=== PATIENT | female | born 1990 ===

== ENCOUNTER 2017-11-07 05:38 | Inpatient (IN) | payer OTHER ==
[2017-11-07] MEDS ORDERED: Lactated Ringer's 1,000 ML IV SCH (06:00)
--- NOTE | 2017-11-07 06:24 | OBHP ---
Datetime: 11/07/2017 06:05 IP Adm Impression: Term, intrauterine IP Admit Plan: Admit to unit; Initiate labor augmentation protocol Admit Comment, IP Provider: Patient is a 27 year old at 39w3d FRANC 11/11/17 by LMP 02/04/17 presen ts to L+D for contractions that started this morning at 1:15am. Patient states that she feels contrac tions every 5-6min. Pain scale 6/10. Offers no other complaints at this time. Endorses +FM, denies VB , LOF. Issues: Denies. Private of Dr. 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: LMP - 02/04/17 [facility] - 10 x monthly x 5 Denies hx of fibroids, ovarian cysts, STIs Denies hx of abnormal pap smears Allergies: NKDA Medications: PNV, Vitamin D, Levothyroxine 137ug Medical Hx: Hypothyroidism, 02/2016 Surgical Hx: Denies Family Hx: Mother - age 52, hypothyroidism; Father - age 58, DM PE: See above A/P: 27 year old at 39w3d presents with contractions, entering active phase of labor -Admit to unit -CEFM and TOCO -Admission Labs: CBC, CMP, TS, UA, RPR -LR @ 125cc/hr -GBS status unknown at this time -Diet: NPO -Anesthesia consult prn -Anticipate Vaginal Delivery -Plan discussed with Dr Denver Peralta DO PGY-1 Attending Note: patient seen, evaluated and examined by me with the Resident. I agree with the abo ve. Anticipate pitocin augmentaiton. Anticipate vaginal delivery. Plan: as per and discussed with Dr. Goff Weight - Estimated: 3178 Presentation-Admit: Vertex FHR - Baseline A Provider: 140 Contraction Comments Provider: irregular Comments, ACOG Physical Exam: VS: Gen: AAOx3 Abd: Soft, gravid, fundal height 37cm Ext: No clubbing, cyanosis, edema SVE: 70/-2 Gestation - Est Wks by US: 39w 3d EGA AdmitDate IP: 39.3 Vital Signs Provider: Reviewed; Within Normal Limits IP Chief Complaint: Uterine contractions NICHD Variability Prov Fetus A: Moderate 6-25bpm FHR Category Provider Fetus A: Category I NICHD Decel Fetus A IP Provider: None Dilatation, Provider: 4 Effacement, Provider: 70 Station, Provider: -2
[2017-11-07 06:49] LABS: SQUAMOUS EPITHIAL 4 /hpf (0-5); URINE BILIRUBIN NEGATIVE (NEGATIVE); URINE CLARITY Clear (Clear); URINE COLOR Yellow (YELLOW); URINE GLUCOSE (UA) NORMAL (Normal); URINE LEUKOCYTE ESTERASE NEG Leu/uL (Negative); URINE NITRATE NEGATIVE (NEGATIVE); URINE PROTEIN NEGATIVE (NEGATIVE); URINE UROBILINOGEN NORMAL mg/dL (0.2-1.0)
[2017-11-07 06:51] LABS: BASO % 0.4 % (0.0-2.0); EOS # 0.1 K/uL (0.0-0.7); EOS % 0.8 % (0.0-4.0); LYMPH # 2.1 K/uL (1.0-4.3); LYMPH % 16.6 % (20.0-40.0); MEAN CELL VOLUME 90.4 fL (81.0-99.0); MEAN CORPUSCULAR HEMOGLOBIN 31.3 pg (27.0-31.0); MEAN CORPUSCULAR HGB CONC 34.6 g/dL (33.0-37.0); MEAN PLATELET VOLUME 8.6 fL (7.2-11.7); MONO # 0.9 K/uL (0.0-0.8); MONO % 7.4 % (0.0-10.0); NEUT # 9.3 K/uL (1.8-7.0); NEUT % 74.8 % (50.0-75.0); RBC 4.17 Mil/uL (3.80-5.20); RED CELL DISTRIBUTION WIDTH 12.6 % (11.5-14.5); WHITE BLOOD COUNT 12.4 K/uL (4.8-10.8)
[2017-11-07 06:56] LABS: URINE BLOOD NEGATIVE (NEGATIVE)
[2017-11-07 06:57] LABS: ALB/GLOB RATIO 1.1 (1.0-2.1); ALBUMIN 3.4 g/dL (3.5-5.0); ALT/SGPT 14 U/L (9-52); AST/SGOT 24 U/L (14-36); BLOOD UREA NITROGEN 6 mg/dL (7-17); CALCIUM 9.2 mg/dl (8.6-10.4); GFR AFRICAN-AMERICAN > 60; GFR NON-AFRICAN AMERICAN > 60
[2017-11-07] MEDS ORDERED: Oxytocin 30 UNIT 30 UNITS/500 ML BAG IV SCH (07:15)
--- NOTE | 2017-11-07 07:37 | OBADHP ---
Datetime: 11/07/2017 06:05 Admit Comment, IP Provider: Patient is a 27 year old at 39w3d FRANC 11/11/17 by LMP 02/04/17 presen ts to L+D for contractions that started this morning at 1:15am. Patient states that she feels contrac tions every 5-6min. Pain scale 6/10. Offers no other complaints at this time. Endorses +FM, denies VB , LOF. Issues: Denies. Private of Dr. Goff OB Hx: 1. Current MED ASST Hx: LMP - 02/04/17 [facility] - 10 x monthly x 5 Denies hx of fibroids, ovarian cysts, STIs Denies hx of abnormal pap smears Allergies: NKDA Medications: PNV, Vitamin D, Levothyroxine 137ug Medical Hx: Hypothyroidism, 02/2016 Surgical Hx: Denies Family Hx: Mother - age 52, hypothyroidism; Father - age 58, DM PE: See above A/P: 27 year old at 39w3d in active labor.gbs negative -admit -see orders Weight - Estimated: 3178 Presentation-Admit: Vertex FHR - Baseline A Provider: 140 Contraction Comments Provider: irregular Comments, ACOG Physical Exam: VS: Gen: AAOx3 Abd: Soft, gravid, fundal height 37cm Ext: No clubbing, cyanosis, edema SVE: /-2 Gestation - Est Wks by US: 39w 3d Vital Signs Provider: Reviewed; Within Normal Limits IP Chief Complaint: Uterine contractions NICHD Variability Prov Fetus A: Moderate 6-25bpm FHR Category Provider Fetus A: Category I NICHD Decel Fetus A IP Provider: None Dilatation, Provider: 4 Effacement, Provider: 70 Station, Provider: -2 EGA AdmitDate IP: 39.3 IP Adm Impression: Term, intrauterine IP Admit Plan: Admit to unit; Initiate labor augmentation protocol
[2017-11-07] MEDS ORDERED: Bupivacaine HCl 0.25% PF (10 ml) Inj ONE ×2 (08:40→16:16)
[2017-11-07] MEDS ORDERED: Oxytocin 30 UNIT 30 UNITS/500 ML BAG IV ONE (08:56)
[2017-11-07] MEDS ORDERED: Fentanyl/Bupivacaine HCl 250 ML EPI ONE (08:59)
--- NOTE | 2017-11-07 16:15 | OBPN ---
Datetime: 11/07/2017 16:12 IP Progress Impression: Reassuring heart rate IP Procedures: Artificial ROM IP Progress Plan: Continue present management Contraction Comments Provider: every 2 min IP Progress Note Comment: S-patient feels some discomfort .had relief from epidural O-VSS FHT Cat1 Tooc ctx q2-3min sve 3-4/80/-2 A/P Patient in labor at 39.3wga.arom done.light mec note -continue to monitor closely -continue pit for augmentation -monitor closely Vital Signs Provider: Reviewed; Within Normal Limits FHR Category Provider Fetus A: Category I Dilatation, Provider: 3-4 Effacement, Provider: 80 Station, Provider: -2 Datetime: 11/07/2017 06:05 FHR - Baseline A Provider: 140 Gestation - Est Wks by US: 39w 3d Weight - Estimated: 3178 Presentation-Admit: Vertex NICHD Variability Prov Fetus A: Moderate 6-25bpm NICHD Decel Fetus A IP Provider: None
[2017-11-07] MEDS ORDERED: Lidocaine 2% Inj (20ml) ONE (22:58)
[2017-11-07] MEDS ORDERED: Oxycodone/Acetaminophen 5/325 mg Tab PO PRN ×2 (23:32)
[2017-11-07] MEDS ORDERED: Benzocaine/Menthol 20%-0.5% Topical Spray (60 ml) TOP PRN (23:32)
--- NOTE | 2017-11-08 00:39 | OBDS ---
DELIVERY PERSONNEL Nurse [employer] Media Specialist Certified: N/A Delivery Doctor: Jenn Goff MD Scrub Nurse: n/a Science Teacher: Janice Gatica RN Anesthesiologist: DR WILKS Veterinary Pharmacologist: SAME Resident: DR RESTREPO MATERNAL INFORMATION Delivery Anesthesia: Epidural Medications in Delivery: PITOCIN 20 UNITS IN 1L IV BAG Estimated Blood Loss (ml): 300 Placenta Cultured: No Maternal Complications: None Provider Comments: of a male infant nuchalx1 around neck loose and reduced on perineum Body and shoulders delivered without difficulty cord clamped and cut.cord blood collected.placenta spontaneously delivered.second degree perineal laceration repaired with 2-0 chormic Fundus firm.patient stable EBL 300CC LABOR SUMMARY EDC: 11/11/2017 00:00 No. Babies in Womb: 1 Attempted: No Labor Anesthesia: Epidural LABOR INFORMATION Reason for Induction: Not Applicable Onset of Labor: 11/07/2017 01:00 Complete Dilatation: 11/07/2017 21:00 Oxytocin: Augmentation Group B Beta Strep: Negative Steroids Given: None Reason Steroids Not Administered: Other Other Reason Not Administered: TERM MEMBRANES Membranes Rupture Method: Artificial Rupture of Membranes: 11/07/2017 15:55 Length of Rupture (hrs): 6.83 Amniotic Fluid Color: Light Meconium Amniotic Fluid Amount: Small Amniotic Fluid Odor: Normal STAGES OF LABOR Stage 1 hrs: 20 Stage 1 min: 0 Stage 2 hrs: 1 Stage 2 min: 45 Stage 3 hrs: 0 Stage 3 min: 26 Total Time in Labor hrs: 22 Total Time in Labor min: 11 VAGINAL DELIVERY Episiotomy: None Laceration Extension: Second Degree Laceration Type: Perineal Other Laceration: LT AND RT LABIAL LACERATION Laceration Repair: Yes Laceration Repair Note: second degree perineal laceration and right and left labial laceration repai red with 2-0 chromic Initial Vag Sponge Count: 1 LAP; 10 X-RAYS Final Vag Sponge Count: 30 E-RAYS,1 LAP Initial Vag Sharps Count: 0 (Annotations: Data stored by N on behalf of user) Final Vag Sharps Count: 4 Sponge Count Correct: Yes; Vaginal Sweep Performed Sharps Count Correct: Yes Count Comment: COUNT IS COMPLETE BABY A INFORMATION Infant Delivery Date/Time: 11/07/2017 22:45 Method of Delivery: Vaginal Born in Route : No : N/A Forceps: N/A Vacuum Extraction: N/A Shoulder Dystocia : No SHOULDER DYSTOCIA BABY A Delivery Date/Time: 11/07/2017 22:45 PRESENTATION/POSITION BABY A Presentation: Cephalic Cephalic Presentation: Vertex Breech Presentation: N/A PLACENTA INFORMATION BABY A Placenta Delivery Time : 11/07/2017 23:11 Placenta Method of Delivery: Spontaneous Placenta Status: Delivered SCORES BABY A Heart Rate 1 min: >100 bpm Resp Effort 1 min: Good Cry Reflex Irritability 1 min: Cough or Sneeze or Pulls Away Muscle Tone 1 min: Active Motion Color 1 min: Body [place], Extremities Blue Resuscitation Effort 1 min: Oxygen SCORE 1 MIN: 9 Heart Rate 5 min: >100 bpm Resp Effort 5 min: Good Cry Reflex Irritability 5 min: Cough or Sneeze or Pulls Away Muscle Tone 5 min: Active Motion Color 5 min: Body [place], Extremities Blue Resuscitation Effort 5 min: Oxygen SCORE 5 MIN: 9 INFANT INFORMATION BABY A Gestational Age at Delivery: 39.3 Gestational Status: Term Infant Outcome : Liveborn Condition : Stable Sex: Male IDENTIFICATION/MEDS BABY A ID Band Number: [id number] ID Band Location: Left Leg; Left Arm Sensor Applied: Yes Sensor Number: [id number] Sensor Location : Cord Clamp Vitamin K Given : Not Given Erythromycin Given: Not Given WEIGHT/LENGTH BABY A Birthweight (gms): 3225 Weight (lb): 7 Weight (oz): 2 Length Inches: 20.25 Infant Length cms: 51.4 CORD INFORMATION BABY A No. Cord Vessels: #3 Nuchal Cord : Around Neck x1, Loose Nuchal Cord Other: n/a True Knot: n/a Infant Cord pH Baby Arterial: N/A Cord Blood Taken: Yes Banking/Donate Info: N/A Infant Suction: Mouth; Nose ASSESSMENT BABY A Infant Complications: Meconium Complications Other: light meconium Physical Findings at Delivery: Within Normal Limits Respirations: Grunting Math And Science Instructor/ALS Called : Yes Infant Care By: Cora DAVID RN / DR PARISH Transferred To: [facility]
--- NOTE | 2017-11-08 07:16 | OBPPN ---
Datetime: 11/08/2017 07:15 PP Pain Prov: Within normal limits PP Nausea Prov: Denies PP Flatus Prov: Yes PP BM Prov: No PP Heart Prov: Normal PP Lungs Prov: Normal PP Abdomen/Uterus Prov: Normal PP Lochia Prov: Normal PP CVA Tenderness Prov: Normal PP Extremities Prov: Normal PP C/S Incision Prov: Not Applicable PP Progress Prov: Normal PP Impression Prov: Normal progression PP Plan Prov: Continue present management PP Progress Note Prov: S-patient states that her pain is well controlled.she deneis nausea, vomiting , headqache, chest pain, shortnes sof breath O-VSS Afebrile Fundus firm and at umbilicus extremities no calf tenderness A/P Patient s/p vaginald elivery ppd 1 doing well -continue routine pp care -follow up am cbc Vital Signs Provider PP: Reviewed; Within Normal Limits
[2017-11-08 07:18] LABS: BASO % 0.2 % (0.0-2.0); EOS % 0.1 % (0.0-4.0); LYMPH # 1.8 K/uL (1.0-4.3); LYMPH % 12.2 % (20.0-40.0); MEAN CELL VOLUME 90.8 fL (81.0-99.0); MEAN CORPUSCULAR HEMOGLOBIN 31.6 pg (27.0-31.0); MEAN CORPUSCULAR HGB CONC 34.8 g/dL (33.0-37.0); MEAN PLATELET VOLUME 8.6 fL (7.2-11.7); MONO % 6.4 % (0.0-10.0); NEUT # 12.2 K/uL (1.8-7.0); NEUT % 81.1 % (50.0-75.0); RBC 3.5 Mil/uL (3.80-5.20); RED CELL DISTRIBUTION WIDTH 12.9 % (11.5-14.5)
--- NOTE | 2017-11-08 07:32 | OBPPN ---
Datetime: 11/08/2017 07:29 PP Pain Prov: Within normal limits PP Nausea Prov: Denies PP Flatus Prov: Yes PP Abdomen/Uterus Prov: Normal PP Extremities Prov: Normal PP Comments Phys Exam Prov: soft,mild ten incision clean and dry PP Impression Prov: Normal progression PP Plan Prov: Continue present management PP Progress Note Prov: pt was seen at bed side, pain under control,no n/v, tolerating deit,voiding,m in lochia, flatus+ pod#2 s/p ex l;ap cystecomy cont pain management cbc reg deiot repeat b hcg in 1 day cont close observ Vital Signs Provider PP: Reviewed; Within Normal Limits
[2017-11-09 13:14] VITALS: BP 111/73; PULSE 101
[2017-11-09 18:55] VITALS: RESP 20; TEMP 99.5; O2SAT 100
== END 2017-11-09 14:53 | disposition home or self-care (01) | DRG 775 ==
LOC: C.EROB 05:38 → C.4D 05:59 → C.4M 11-08 01:45
PROVIDERS: ADMIT Student in an Organized Health Care Education/Training Program; ATTEND Student in an Organized Health Care Education/Training Program
PROC: 0KQM0ZZ Repair Perineum Muscle, Open Approach (ICD-10-PCS; principal; 2017-11-07)
PROC: 10E0XZZ Delivery of Products of Conception, External Approach (ICD-10-PCS; 2017-11-07)
DX: O69.81X0 Labor and delivery complicated by cord around neck, without compression, not applicable or unspecified (principal); E03.9 Hypothyroidism, unspecified; O99.284 Endocrine, nutritional and metabolic diseases complicating childbirth; O70.1 Second degree perineal laceration during delivery; Z3A.39 39 weeks gestation of pregnancy; Z37.0 Single live birth